=== PATIENT | female | born 1970 | race Caucasian/White ===

== ENCOUNTER → 2019-10-16 | Outpatient (CLI) | payer OTHER ==
--- NOTE | 2019-10-16 20:05 | Diagnostic Imaging Report ---
EXAMINATION: Magnetic resonance imaging of the left ankle without contrast. DATE: October 16, 2019. COMPARISON: None. HISTORY: 49-year-old female, left ankle pain. The patient is a runner. TECHNIQUE: Magnetic Resonance Imaging sequences were performed of the ankle without contrast. [< >] FINDINGS: TENDONS AND LIGAMENTS: The Achilles tendon is unremarkable. There is a complete tear of the tibialis posterior tendon with the torn and retracted tendon centered approximately 1.2 cm proximal to the level of the tibial plafond. The flexor digitorum longus and flexor hallucis longus tendons are intact. The peroneal tendons - peroneus longus and peroneus brevis - are intact. The anterior extensor tendons - tibialis anterior, extensor hallucis longus and extensor digitorum longus tendons - are intact. The anterior and posterior syndesmotic ligaments are intact. The anterior talofibular, posterior talofibular, calcaneofibular and deltoid ligaments are intact. The plantar fascia is intact. JOINTS: There are trace tibiotalar and posterior subtalar joint effusions. BONE: There is low-level marrow edema adjacent to the calcaneocuboid articulation which likely relates to minimal degenerative changes. There is no acute fracture. There is no evidence of osteonecrosis. The talar dome is intact. BURSAE AND SOFT TISSUES: There is subcutaneous edema medially near the level of the tibialis posterior tendon tear. IMPRESSION: 1. Complete tear of the tibialis posterior tendon with the torn and retracted tendon located 1.2 cm proximal to the level of the tibial plafond. 2. The additional tendons are intact. 3. Intact ankle ligaments. 4. No acute fracture, bone contusion, or evidence of osteonecrosis. Dictated by: Dictated on workstation # [id number]
== END ==
LOC: RAD 15:14
PROVIDERS: ATTEND Podiatrist Foot & Ankle Surgery
DX: M76.822 Posterior tibial tendinitis, left leg (principal); S86.112A Strain of other muscle(s) and tendon(s) of posterior muscle group at lower leg level, left leg, initial encounter; X58.XXXA Exposure to other specified factors, initial encounter
CPT/HCPCS: 73721

== ENCOUNTER → 2019-11-12 | Outpatient (CLI) | payer OTHER | LOC: RAD 10:13 | PROVIDERS: ATTEND Family Medicine | DX: Z12.31 Encounter for screening mammogram for malignant neoplasm of breast (principal) | CPT/HCPCS: 77063; 77067 ==

== ENCOUNTER → 2020-11-23 | Outpatient (CLI) | payer OTHER ==
--- NOTE | 2020-11-23 11:23 | Diagnostic Imaging Report ---
INDICATION: Routine screening. Comparison is made with prior mammogram from 11/12/2019 and 07/11/2018. 2-D and 3-D bilateral screening mammography was performed with CAD. Both breasts are heterogeneously dense, limiting the sensitivity of mammography. No mass or malignant-appearing microcalcifications are seen. There are benign calcification present. Axillae are unremarkable. IMPRESSION: BI-RADS Category 2 No mammographic features suspicious for malignancy are identified. ACR BI-RADS Category 2: Benign findings. Result letter will be mailed to the patient. Note: At least 10% of breast cancer is not imaged by mammography. Dictated by: Dictated on workstation # [id number]
== END ==
LOC: RAD 09:30
PROVIDERS: ATTEND Family Medicine
DX: Z12.31 Encounter for screening mammogram for malignant neoplasm of breast (principal)
CPT/HCPCS: 77063; 77067

== ENCOUNTER → 2021-11-25 | Outpatient (CLI) | payer OTHER ==
--- NOTE | 2021-11-25 13:15 | Diagnostic Imaging Report ---
INDICATION: Routine screening. Comparison is made with prior mammogram of 11/23/2020 and 11/12/2019. 2-D and 3-D bilateral screening mammography was performed with CAD. Both breasts are heterogeneously dense, limiting the sensitivity of mammography. The parenchymal pattern is stable. No mass or malignant-appearing microcalcifications are seen. There are benign calcifications present. Axillae are unremarkable. IMPRESSION: No mammographic features suspicious for malignancy are identified. ACR BI-RADS Category 2: Benign findings. Result letter will be mailed to the patient. Note: At least 10% of breast cancer is not imaged by mammography. BI-RADS Category 2 Dictated by: Dictated on workstation # [id number]
== END ==
LOC: RAD 10:45
PROVIDERS: ATTEND Family Medicine
DX: Z12.31 Encounter for screening mammogram for malignant neoplasm of breast (principal)
CPT/HCPCS: 77063; 77067

== ENCOUNTER → 2022-05-30 | Outpatient (CLI) | payer OTHER ==
--- NOTE | 2022-05-30 14:19 | Diagnostic Imaging Report ---
Exam: CT left ankle without contrast. Date: January 27, 2023. Indication: 52-year-old female, left ankle pain. Comparison: MRI left ankle October 16, 2019. Technique: Axial CT images of the left ankle were obtained without contrast. Coronal and sagittal reformats were obtained and provided. Findings: There are postoperative related changes in the navicular near the expected attachment site of the tibialis posterior tendon. Portions of postoperative material are external to the bone, best demonstrated on axial image 130 and adjacent sequential images. The tibialis posterior tendon and additional tendons and ligaments are not well evaluated on CT. The structure does appear to be more optimally evaluated on MRI. There is no identified acute fracture. There is no cortical or aggressive bone destruction There is narrowing of the distance between the talus and calcaneus in the region of the critical angle of Gissane. There is no pronounced subtalar arthritis. There is no tibiotalar arthritis. There is no tibiotalar or subtalar joint effusion. There is preservation of normal fat attenuation within the sinus tarsi. The talar dome is intact. There is nonspecific volar soft tissue swelling near the plantar fascial calcaneal attachment site. Impression: 1. Postoperative related changes of the navicular with postoperative material extending to external to bone. Tendons and ligaments are not well evaluated on CT and would be more optimally evaluated on MRI. 2. No acute fracture or other acute osseous abnormality. 3. There is narrowing of the distance between the talus including calcaneus in the region of the critical angle of Gissane; however, there is preservation of normal fat attenuation in the sinus tarsi and no evidence of subtalar arthritis. Dictated by: Dictated on workstation # [id number]
== END ==
LOC: RAD 10:15
PROVIDERS: ATTEND Orthopaedic Surgery Foot and Ankle Surgery
DX: M25.572 Pain in left ankle and joints of left foot (principal); Z98.890 Other specified postprocedural states
CPT/HCPCS: 73700